=== PATIENT | male | born 1965 | race Caucasian/White ===

== ENCOUNTER → 2018-07-04 13:21 | Outpatient (CLI) | payer BC ==
--- NOTE | ~2018-07-04 | ST ---
PATIENT:LIBERTAD ROSAS MEDICAL RECORD: [id number] SEX: M LOCATION:[facility] ORDER #: ADMISSION DATE: 07/04/18 AGE OF PATIENT: 53 REFERRING PHYSICIAN: INTERPRETING PHYSICIAN: RODRI MIGUEL MD DATE OF SERVICE: 07/04/2018 Baseline ECG is normal. He exercised for 6 minutes and 50 seconds on Sky protocol. Maximum heart rate 177 beats per minute, greater than 85% of max predicted. No ECG change for ischemia. No symptoms of ischemia. Normal blood pressure response to exercise. No arrhythmias noted. Gihb-wu-joba exercise tolerance for age. TRANSINT:[id number] Voice Confirmation ID: [id number] DOCUMENT ID: [id number] RODRI MIGUEL MD CC: [id number] DICTATION DATE: 07/05/18 1338 EDGING SUPERVISOR: 07/05/18 1404 DEP CLI 07/04/18 [facility] [address] [place] [address]
--- NOTE | ~2018-07-04 | EC ---
PATIENT:LIBERTAD ROSAS DATE OF SERVICE: 07/04/18 SEX: M MEDICAL RECORD: [id number] DATE OF : 69 [facility] AGE OF PATIENT: 53 ADMISSION DATE: 07/04/18 REFERRING PHYSICIAN: INTERPRETING PHYSICIAN: RODRI MIGUEL MD ECHOCARDIOGRAM REPORT ECHO CHARGES 4 ECHO COMPLETE Date: 07/04/18 CLINICAL DIAGNOSIS: HTN/LEFT ARM PAIN ECHOCARDIOGRAPHIC MEASUREMENTS (adult normal given) AC root (d.<3.7cm) 3.1 cm LV Septum d (<1.2 cm> 1.5 cm Valve Excursion 1.6 cm LV Septum (systole) 1.6 cm Left Atria (s.<4.0cm> 3.4 cm LVPW d(<1.2cm) 1.6 cm RV (d.<2.3cm) 4.0 cm LVPW (sytole) 1.7 cm LV diastole(<5.6CM) 4.2 cm MV E-F(>70mm/sec) cm LV systole 2.6 cm LVOT Diameter 1.9 cm MV exc.(>10mm) 1.4 cm Est.ejection fraction (50-75%) % DOPPLER: LVIT cm/sec A 59.0 cm/sec E 53.0 cm/sec LA cm/sec RVSP 30 mmHg LVOT 82 cm/sec AOP1/2T m/s Asc. Ao 125 cm/sec RVOT 77 cm/sec RA cm/sec PA 120 cm/sec AV Gradient Peak 6.30 mmHg AV Mean 3.20 mmHg AV Area 1.7 cm MV Gradient Peak 2.39 mmHg MV Mean 1.20 mmHg MV Area cm COMMENTS: Production Team Member: Kevin BAUER Conservation Assistant: 3 Dr. Garcia TAPE# PACS Pericardial Effusion N DATE OF SERVICE: 07/04/2018 Adequate 2-D echo, color-flow and spectral Doppler, and M-mode. Mild LVH. LV internal dimensions are normal. Wall motion is normal. EF is equal to 55%. Aortic valve is tricuspid. No evidence of stenosis by Doppler interrogation. Left atrium is normal at 3.4 cm. Mitral valve shows no prolapse. Trace MR. Right-sided chambers are grossly normal. Trace TR. TRANSINT:[id number] Voice Confirmation ID: [id number] DOCUMENT ID: [id number] ECHOCARDIOGRAM REPORT [id number] LIBERTAD ROSAS GREGORY A MD CC: [id number] DICTATION DATE: 07/04/18 1549 GENERATOR MAN: 07/04/18 1804 [facility] [address] [place] [id number]
== END | disposition home or self-care (01) ==
LOC: D.HCCARDIO 13:21
PROVIDERS: ATTEND Internal Medicine Interventional Cardiology
DX: I20.9 Angina pectoris, unspecified (principal); I10 Essential (primary) hypertension